=== PATIENT | male | born 1940 | race Caucasian/White ===

== ENCOUNTER 2016-12-13 06:34 | Day surgery (SDC) | payer MEDICARE ==
[2016-12-12 13:44] LABS: BASOPHILS 0.5 % (0-2); EOSINOPHILS 1.7 % (0-7); HEMATOCRIT 43.9 % (42.0-54.0); HEMOGLOBIN 14.9 g/dL (13.5-17.5); IMMATURE GRANULOCYTES 0.3 % (0-5); LYMPHOCYTES 14.8 % (15-50); MCH 31.3 pg (26.0-34.0); MCHC 33.9 g/dL (31.0-37.0); MCV 92.2 fL (80.0-100.0); MEAN PLATELET VOLUME 11.5 fL (7.4-10.4); MONOCYTES 6.7 % (2-11); RBC 4.76 10x6/uL (4.20-6.10); RDW 14.7 % (11.5-14.5); WBC 9.2 10x3/uL (4.8-10.8)
[2016-12-12 13:57] LABS: PLATELET COUNT 198 10x3/uL (130-400)
[2016-12-12 14:14] LABS: APTT 29.1 SECONDS (22.8-39.4); INR 0.94 (0.85-1.17); PROTIME 12.5 SECONDS (11.6-15.0)
[~2016-12-13] VITALS: Ht 175.3 cm; Wt 60.0 kg
[~2016-12-13 06:34] MED LIST: BAYER CHEWABLE81 MG PO; CENTRUM COMPLE1 EACH PO; FISH OIL 1,2001 CAP PO; MAGNESIUM OXID250 MG PO; OMEPRAZOLE20 M1 PO; STRESS 600 WI1 UDTAB PO; ZESTRIL10 MG PO; ZOCOR40 MG PO
[2016-12-13 08:06] VITALS: BP 141/80; BMI 21.0
[2016-12-13] MEDS ORDERED: FUROSEMIDE20 MG PO (11:48)
[2016-12-13] MEDS ORDERED: FLOMAX0.4 MG PO (11:48)
[2016-12-13] MEDS ORDERED: HYDROCODON-ACE1 EAC7 PO (11:48)
--- NOTE | 2016-12-13 11:57 | NUR ---
12 LEAD EKG OBTAINED UPON ARRIVAL TO PACU PER DR CHANG ORDERS. RESULTS TO . ORDERS FOR CARDIOLOGY CONSULT.
--- NOTE | 2016-12-13 12:21 | NUR ---
DR STILL NOTIFIED OF EKG CHANGES AND CARDIOLOGY CONSULT. OK TO TRANSFER PT BACK TO [facility] FOR EVAL.
--- NOTE | 2016-12-13 13:28 | NUR ---
8954 DR. STILL/GRISEDLA'S OFFICE NOTIFED OF CONSULT.
--- NOTE | 2016-12-13 13:31 | NUR ---
3510 EKG FAXED TO [id number]
--- NOTE | 2016-12-13 14:26 | NUR ---
1410 PT. STOOD AT BEDSIDE TO VOID, VOIDED 25CC IN URINAL, PT. FAINTED WITH VOIDING, RETURNED TO BED, QUICKLY AROUSED, VS 78 12 94% BP 109/55 IV PATENT OPENED UP RATE. RATES PAIN 2-3. PT TO REMAIN ON BEDREST HEAD OF BED AT 20 DEGREES.
[2016-12-13 15:54] LABS: INR 1.08 (0.85-1.17); PROTIME 13.9 SECONDS (11.6-15.0)
[2016-12-13 16:09] LABS: CREATINE KINASE 84 UL (21-232)
[2016-12-13 16:10] LABS: TROPONIN-I < 0.017 ng/mL (0.000-0.060)
--- NOTE | 2016-12-13 17:37 | NUR ---
1735 REPORT TO Nickolas GABRIEL. TO 2111 BY YUVAL.
[2016-12-13 18:04] VITALS: BP 106/70; Ht 175.3 cm; Wt 60.0 kg
--- NOTE | 2016-12-13 18:15 | NUR ---
PT TO ROOM FROM OUTPATIENT. PT ALERT AND ORIENTED VS ARE WNL AND CHARTED. PT IV INFUSING TO LEFT UPPER FA NS @100. FAMILY AT BEDSIDE. BA IS ON. TELE PLACED AND PT IS RUNNING SR 90 BPM. WILL CONT TO MONITOR
--- NOTE | 2016-12-13 18:36 | NUR ---
PT SITTING UP IN BED WITH FAMILY AT BEDSIDE DENY NEEDS
[2016-12-13 20:00] VITALS: BP 97/53
--- NOTE | 2016-12-13 20:10 | NUR ---
PT RECEIVED SITTING UP IN BED EATING ICE CHIPS AAOX3 AT THIS TIME WITH FAMILY MEMBER AT BEDSIDE. ASSESSMENT COMPLETED PER FLOW SHEET. PT DENIES NEEDS AT THIS TIME. BED LOW. PHONE AND CALL LIGHT IN REACH. SRX2.
[2016-12-13 21:37] LABS: BASOPHILS 0.2 % (0-2); EOSINOPHILS 0.1 % (0-7); IMMATURE GRANULOCYTES 0.4 % (0-5); LYMPHOCYTES 8.2 % (15-50); MCH 30.6 pg (26.0-34.0); MCHC 32.9 g/dL (31.0-37.0); MCV 93.1 fL (80.0-100.0); MEAN PLATELET VOLUME 11.5 fL (7.4-10.4); MONOCYTES 6.4 % (2-11); NEUTROPHILS 84.7 % (40-80); PLATELET COUNT 173 10x3/uL (130-400); RDW 14.7 % (11.5-14.5)
[2016-12-13 21:52] LABS: HEMOGLOBIN 11.5 g/dL (13.5-17.5); RBC 3.76 10x6/uL (4.20-6.10); WBC 14.6 10x3/uL (4.8-10.8)
--- NOTE | 2016-12-13 22:00 | NUR ---
PM MEDS GIVEN AT THIS TIME. PT DENIES NEEDS. BED LOW. PHONE AND CALL LIGHT IN REACH. SRX2.
[2016-12-13 22:10] LABS: ALKALINE PHOSPHATASE 60 U/L (46-116); ALT (SGPT) 26 U/L (10-68); BILIRUBIN - TOTAL 0.49 mg/dL (0.2-1.3); CALC OSMOLALITY 280 mosm/kg (275-300); CALCIUM 7.9 mg/dL (8.5-10.1); CARBON DIOXIDE 29.8 mmol/L (21.0-32.0); CHLORIDE - SERUM 103 mmol/L (98-107); CKMB 1.1 U/L (0.0-3.6); CREATINE KINASE 120 UL (21-232); CREATININE - SERUM 1.2 mg/dL (0.6-1.3); GLUCOSE 106 mg/dL (74-106); POTASSIUM - SERUM 4.2 mmol/L (3.5-5.1); PROTEIN - SERUM 5.8 g/dL (6.4-8.2); SODIUM 139 mmol/L (136-145); UREA NITROGEN 22 mg/dL (7-18); eGFR NON AFRICAN AMERICAN 63 mL/min (90-120)
[2016-12-13 22:18] LABS: TROPONIN-I < 0.017 ng/mL (0.000-0.060)
[2016-12-14] VITALS: BP 97/67
--- NOTE | 2016-12-14 02:46 | NUR ---
NEW BAG OF NS HUNG AT THIS TIME. PT DENIES NEEDS. BED LOW. PHONE AND CALL LIGHT IN REACH. SRX2.
[2016-12-14 04:00] VITALS: BP 110/62
--- NOTE | 2016-12-14 04:22 | NUR ---
PEPCID IVP ADMINISTERED AT THIS TIME. PT DENIES NEEDS. VOIDED APPROX 250 AT THIS TIME IN URINAL. BED LOW. PHONE AND CALL LIGHT IN REACH. SRX2.
[2016-12-14 05:13] LABS: BASOPHILS 0.3 % (0-2); EOSINOPHILS 0.8 % (0-7); HEMATOCRIT 31.5 % (42.0-54.0); HEMOGLOBIN 10.5 g/dL (13.5-17.5); IMMATURE GRANULOCYTES 0.2 % (0-5); LYMPHOCYTES 18.4 % (15-50); MCH 30.9 pg (26.0-34.0); MCHC 33.3 g/dL (31.0-37.0); MCV 92.6 fL (80.0-100.0); MEAN PLATELET VOLUME 11.8 fL (7.4-10.4); MONOCYTES 9.2 % (2-11); NEUTROPHILS 71.1 % (40-80); PLATELET COUNT 169 10x3/uL (130-400); RDW 14.8 % (11.5-14.5)
[2016-12-14 05:24] LABS: WBC 9.1 10x3/uL (4.8-10.8)
[2016-12-14 05:27] LABS: ALBUMIN 2.8 g/dL (3.4-5.0); ALKALINE PHOSPHATASE 53 U/L (46-116); ALT (SGPT) 24 U/L (10-68); BILIRUBIN - TOTAL 0.59 mg/dL (0.2-1.3); CALC OSMOLALITY 281 mosm/kg (275-300); CALCIUM 7.8 mg/dL (8.5-10.1); CARBON DIOXIDE 29.8 mmol/L (21.0-32.0); CHLORIDE - SERUM 105 mmol/L (98-107); CREATININE - SERUM 1.2 mg/dL (0.6-1.3); GLUCOSE 97 mg/dL (74-106); POTASSIUM - SERUM 4.1 mmol/L (3.5-5.1); PROTEIN - SERUM 5.4 g/dL (6.4-8.2); SODIUM 140 mmol/L (136-145); UREA NITROGEN 20 mg/dL (7-18); eGFR NON AFRICAN AMERICAN 63 mL/min (90-120)
[2016-12-14 05:37] LABS: CREATINE KINASE 121 UL (21-232); MAGNESIUM - SERUM 1.6 mg/dL (1.8-2.4); PHOSPHOROUS 3.3 mg/dL (2.5-4.9)
[2016-12-14 05:38] LABS: TROPONIN-I 0.017 ng/mL (0.000-0.060)
[2016-12-14 08:00] VITALS: BP 120/66
--- NOTE | 2016-12-14 08:13 | NUR ---
AM ROUNDS - PT AWAKE IN BED RECIEVING A BREATHING TREATMENT. BED ALARM ON. AT BEDSIDE. IV IN LUE WITH NS AT 100CC/HR. MONITOR SHOWING SR, HR 78. WILL CONTINUE TO MONITOR
--- NOTE | 2016-12-14 08:20 | OP ---
PATIENT NAME: ALCIDES العراقي MEDICAL RECORD: [id number] :40 LOCATION:D. D.2111 ADMISSION DATE: SURGEON: JOSEFINA CARTER MD DATE OF OPERATION: 12/13/2016 SURGEON: Josefina Carter MD. PREOPERATIVE DIAGNOSIS: Recurrent bilateral inguinal hernia. POSTOPERATIVE DIAGNOSIS: Recurrent bilateral inguinal hernia. PROCEDURE PERFORMED: Laparoscopic recurrent bilateral inguinal hernia repair with mesh. ANESTHESIA: General. COMPLICATIONS: None. SPECIMENS: None. Case was clean. ESTIMATED BLOOD LOSS: 20 cc. OPERATIVE COURSE: After consent was obtained, the patient was taken to the operating room and placed in the supine position on the operating table. Next, general anesthesia was given via endotracheal intubation after a timeout was taken to confirm the correct patient and procedure. The abdomen was prepped and draped in typical sterile fashion. Local anesthetic was injected just to the right of the umbilicus. An incision was made with a 15-blade scalpel. Dissection continued with electrocautery to the level of the external oblique fascia. The external oblique fascia was incised with a 15-blade scalpel. The rectus muscles were gently with a blunt [place] clamp when the posterior fascia was encountered. Retractor was placed. The Spacemaker balloon was inserted into the preperitoneal space and advanced to the pubic tubercle. The balloon was inflated. It was held inflated for approximately 3 minutes. The Spacemaker balloon was removed. The preperitoneal space was inflated with CO2. There was an adequate dissection of the preperitoneal space with the balloon. At this time, 2 additional 5-mm trocars were placed into the preperitoneal space under direct laparoscopic vision after administration of local anesthetic, one in the left lower quadrant and one in the right lower quadrant. The pubic tubercles were dissected down bilaterally. The inferior epigastrics were identified. On the left side, there was a large indirect inguinal component associated with the hernia. The hernia sac was bluntly dissected. The peritoneum was dissected inferiorly until the vas was noted to be running medially, the vessels running laterally, the vessels were clearly dissected and delineated at this time. This was in the right side. There was both the direct and indirect component on the right side. The hernia sac was dissected down the indirect space. The peritoneum was then dissected bluntly inferiorly until the vas was noted to be running medially and the vessels running laterally at this time. A left-sided Bard 3DMax mesh was placed into the preperitoneal space. It was secured to the pubic tubercle medially. It was secured to the rectus muscle anteriorly and superiorly. A second mesh was placed in the preperitoneal space, this was a right-sided mesh. It was again secured to the pubic tubercle medially, the rectus muscle posteriorly, it was tucked in both meshes. The OPERATIVE REPORT [id number] ALCIDES العراقي were tucked laterally into the lateral space. At this time, the meshes were confirmed to be covering both the direct and indirect spaces on both sides. At this time, all instruments were removed. The preperitoneal space was deflated. The trocars were removed. External oblique fascia was closed with an 0 Vicryl suture. The skin was closed with 4-0 Monocryl, Mastisol and Steri-Strips. At the end of the case, all needle and instrument counts were correct. No complications occurred. The patient was extubated and returned to recovery room in stable condition. TRANSINT:[id number] Voice Confirmation ID: [id number] DOCUMENT ID: [id number] JOSEFINA CARTER MD at 0820 CC: [id number] DICTATION DATE: 12/13/16 1145 CONTINUING EDUCATION SPECIALIST: 12/13/162030 [facility] [address] [place] [address]
[2016-12-14 12:00] VITALS: BP 108/70
[2016-12-14 16:00] VITALS: BP 101/52
--- NOTE | 2016-12-15 16:36 | EC ---
PATIENT:ALCIDES العراقي DATE OF SERVICE: 12/13/16 SEX: M MEDICAL RECORD: [id number] DATE OF : 40 LOCATION:D.OPS AGE OF PATIENT: 75 ADMISSION DATE: 12/13/16 REFERRING PHYSICIAN: INTERPRETING PHYSICIAN: JASON STILL MD ECHOCARDIOGRAM REPORT ECHO CHARGES 4 ECHO COMPLETE CLINICAL DIAGNOSIS: SYNCOPE/EKG CHANGES HX TN/HTN ECHOCARDIOGRAPHIC MEASUREMENTS (adult normal given) AC root (d.<3.7cm) 3.3 LV Septum d (<1.2 cm> 1.6 Valve Excursion 1.8 LV Septum (systole) 2.3 Left Atria (s.<4.0cm> 3.7 LVPW d(<1.2cm) 1.4 RV (d.<2.3cm) 3.8 LVPW (sytole) 2.0 LV diastole(<5.6CM) 4.3 MV E-F(>70mm/sec) LV systole 2.3 LVOT Diameter 1.8 MV exc.(>10mm) Est.ejection fraction (50-75%) Pericardial Effusion N DOPPLER: LVIT A 71.0 E 38.0 LA RVSP LVOT 90 AOP1/2T Asc. Ao 136 RVOT RA PA AV Gradient Peak 7.42 AV Mean 4.03 AV Area 1.5 MV Gradient Peak 3.68 MV Mean 1.04 MV Area COMMENTS: Senior Salesforce Developer: Asha PAGE Chainstitch Hemmer:Asha Branch TAPE# PACS DATE OF SERVICE: 12/14/2016 Echocardiogram FINDINGS: 1. Left ventricle chamber size is within normal limits. Left ventricular systolic function is normal. Overall ejection fraction estimated at 55%. 2. Left atrium, right atrium, and right ventricle chamber sizes are within normal limits. 3. Valvular structures have normal structure and motion. ECHOCARDIOGRAM REPORT [id number] ALCIDES العراقي 4. Doppler interrogation only reveals mild mitral regurgitation. No other valvular insufficiency or stenosis. 5. No evidence of pericardial effusion or left ventricular thrombus. TRANSINT:[id number] Voice Confirmation ID: [id number] DOCUMENT ID: [id number] JASON STILL MD at 1638 CC: [id number] DICTATION DATE: 12/14/16 1629 FINANCIAL ANALYST ACCOUNTANT: 12/14/16 2703 [facility] 12/14/16 [facility] [address] [place] [address]
== END 2016-12-14 17:30 | disposition home or self-care (01) ==
LOC: D.M2 06:34 → D.OPS 06:34 → D.PAN 09:40 → D.OPS 11:30 → D.M2 17:57 → D.OPS 12-14 17:30
PROVIDERS: Anesthesiology; Emergency Medicine; Surgery
DX: K40.20 Bilateral inguinal hernia, without obstruction or gangrene, not specified as recurrent (principal); I71.4 Abdominal aortic aneurysm, without rupture; N28.89 Other specified disorders of kidney and ureter; I25.10 Atherosclerotic heart disease of native coronary artery without angina pectoris; E78.5 Hyperlipidemia, unspecified; R94.31 Abnormal electrocardiogram [ECG] [EKG]; R55 Syncope and collapse; K21.9 Gastro-esophageal reflux disease without esophagitis; F17.200 Nicotine dependence, unspecified, uncomplicated; Z01.812 Encounter for preprocedural laboratory examination

== ENCOUNTER → 2017-07-02 08:23 | Outpatient (CLI) | payer MEDICARE ==
[2016-12-13 18:04] VITALS: BMI 19.5
[~2017-07-02 08:23] MED LIST changes: +FLOMAX0.4 MG PO; +FUROSEMIDE20 MG PO; +HYDROCODON-ACE1 EAC7 PO
[2017-07-02 09:21] LABS: CREATININE - SERUM 1.2 mg/dL (0.6-1.3)
== END | disposition home or self-care (01) ==
LOC: D.CT 08:23
PROVIDERS: Internal Medicine Cardiovascular Disease
DX: I71.4 Abdominal aortic aneurysm, without rupture (principal)

== ENCOUNTER → 2018-04-11 08:07 | Outpatient (CLI) | payer MEDICARE ==
[2016-12-13 18:04] VITALS: BMI 19.5
== END | disposition home or self-care (01) ==
LOC: D.CT 08:07
DX: R51 Headache (principal)

== ENCOUNTER → 2018-06-05 15:26 | Outpatient (CLI) | payer MEDICARE ==
[2016-12-13 18:04] VITALS: BMI 19.5
== END | disposition home or self-care (01) ==
LOC: D.MRI 15:26
DX: M54.2 Cervicalgia (principal)

== ENCOUNTER → 2018-08-12 17:13 | Outpatient (CLI) | payer MEDICARE ==
[2016-12-13 18:04] VITALS: BMI 19.5
== END | disposition home or self-care (01) ==
LOC: D.LABREF 17:13
DX: R31.9 Hematuria, unspecified (principal)

== ENCOUNTER → 2018-08-15 15:09 | Outpatient (CLI) | payer MEDICARE ==
[2016-12-13 18:04] VITALS: BMI 19.5
[~2018-08-15 15:09] MED LIST changes: +CELEXA20 MG PO; +PROTONIX40 MG PO; +TOPAMAX50 MG PO
[2018-08-15 16:17] LABS: CREATININE - SERUM 1.2 mg/dL (0.6-1.3)
== END | disposition home or self-care (01) ==
LOC: D.CT 15:09
PROVIDERS: Urology
DX: Z85.528 Personal history of other malignant neoplasm of kidney (principal)

== ENCOUNTER 2018-08-20 05:10 | Day surgery (SDC) | payer MEDICARE ==
[2018-08-19 09:51] LABS: BASOPHILS 0.5 % (0-2); EOSINOPHILS 1.6 % (0-7); HEMATOCRIT 44.2 % (42.0-54.0); HEMOGLOBIN 15.1 g/dL (13.5-17.5); IMMATURE GRANULOCYTES 0.4 % (0-5); LYMPHOCYTES 17.4 % (15-50); MCH 31.5 pg (26.0-34.0); MCHC 34.2 g/dL (31.0-37.0); MCV 92.3 fL (80.0-100.0); MEAN PLATELET VOLUME 11.1 fL (7.4-10.4); MONOCYTES 7.4 % (2-11); NEUTROPHILS 72.7 % (40-80); RBC 4.79 10x6/uL (4.20-6.10); RDW 14.7 % (11.5-14.5)
[2018-08-19 09:53] LABS: PLATELET COUNT 213 10x3/uL (130-400)
[2018-08-19 10:04] LABS: APTT 31.6 SECONDS (22.8-39.4); INR 1.06 (0.85-1.17); PROTIME 13.3 SECONDS (11.6-15.0)
[2018-08-19 10:07] LABS: ANION GAP 12.4 mmol/L (8-16); CALCIUM 9.5 mg/dL (8.5-10.1); CARBON DIOXIDE 27.7 mmol/L (21.0-32.0); CREATININE - SERUM 1.3 mg/dL (0.6-1.3); POTASSIUM - SERUM 4.1 mmol/L (3.5-5.1)
[~2018-08-20] VITALS: Ht 175.3 cm; Wt 62.1 kg
[2018-08-20 06:38] VITALS: BP 110/69; Ht 175.3 cm; Wt 62.1 kg
--- NOTE | 2018-08-20 09:50 | NUR ---
DC INSTRUCTIONS GIVEN TO PT. STATES UNDERSTANDIND. DC'D IV CATH FULLY INTACT. PT VOIDED. PT LEFT UNIT VIA AT 0671
--- NOTE | 2018-08-20 11:58 | OP ---
PATIENT NAME: ALCIDES العراقي MEDICAL RECORD: [id number] :40 LOCATION:D.[facility] ADMISSION DATE: SURGEON: THIAGO MAE MD DATE OF OPERATION: 08/20/2018 SURGEON: Thiago Mae MD ANESTHESIA: TIVA by Fili Zamora CRNA. DIAGNOSES: 1. History of bladder cancer. 2. Obstructive BPH. PROCEDURES: Cystoscopy, UroLift times 5 implants. FINDINGS: Inflamed bladder with single ureteral orifices bilaterally. No bladder tumors. Obstructive bilateral lateral lobes of the prostate. No median lobe visible. Prostate size of 50 grams on digital rectal examination. ESTIMATED BLOOD LOSS: Minimal. CLINICAL HISTORY: This is a 77-year-old male, who has a history of bladder cancer. These were resected by Dr. Del Rio 3 years ago. He had a disagreement with Dr. Del Rio and he does not see Dr. Del Rio anymore. He then developed left renal cell carcinoma, which was treated with laparoscopic left radical nephrectomy by Dr. Layne 1-1/2 years ago. He has ongoing microscopic hematuria. He did have a CT angiogram on 07/02/2017, which showed an endovascular stent for an aneurysm and a prior left nephrectomy, but no tumors in the right kidney. His serum creatinine is 1.2. He is a smoker. He is still smoking. He has significant voiding symptoms including nocturia times 3, daytime frequency every 2 hours, slow urinary flow. His IPSS score is 19 and his quality of life score is 3. On digital rectal examination, his prostate was enlarged and estimated to be about 50 grams in size. He comes today for surveillance cystoscopy. He will also be getting the UroLift procedure to treat his BPH. He is not allergic to any medications. He was given Ancef airconditioning plant operator to the OR. DESCRIPTION OF PROCEDURE: The patient was given IV sedation. He was then placed in the dorsal lithotomy position. Lidocaine jelly was inserted into the urethra. We then used the UroLift scope to perform the cystoscopy. No tumors or strictures were seen in the penile urethra. The prostate shows vascular prostatic mucosa with lateral lobe enlargement. The lateral lobes meet in the midline. There is no median lobe at all. Going into the bladder, the bladder was rather inflamed appearing, but no tumors were seen. We then proceeded with the UroLift procedure. The first 2 implants were placed near the bladder neck. We saw the bladder neck, then moved distally about 1.5-2 cm from the bladder neck. In the anterolateral portion of the lateral lobes, the UroLift device was fired. We then moved forward little bit until the reflection from the suture was visible and then the suture was cut and the clip applied. The prostatic urethra was relatively short, so we had to perform a box type configuration. The second set of implants was placed near the level of the verumontanum. I had to go a little bit lower in order not to overlap with the first implant. As a result, we were more on the beefier portion of the lateral lobe. After applying compression, one of the device was fired, but it did not go all the way through and this device was loss. We repeated it with more compression and this device OPERATIVE REPORT [id number] ALCIDES العراقي did catch. This was done on both of the lateral lobes near the verumontanum. At the end of the procedure, he had a good channel in the prostatic urethra. We drained his bladder through the scope sheath, and then I will see the patient in followup in 2 weeks' time to check on his voiding symptoms. TRANSINT:[id number] Voice Confirmation ID: [id number] DOCUMENT ID: [id number] THIAGO MAE MD at 1158 CC: [id number] DICTATION DATE: 08/20/18827 VENETIAN BLIND WASHER: 08/20/18 0945 [facility] 08/20/[address] [address]
== END 2018-08-20 09:50 | disposition home or self-care (01) ==
LOC: D.OPS 05:10 → D.PAN 07:30 → D.OPS 08:00 → D.PAN 08:00 → D.OPS 09:50
PROVIDERS: Anesthesiology
DX: Z85.51 Personal history of malignant neoplasm of bladder (principal); N40.1 Benign prostatic hyperplasia with lower urinary tract symptoms; N13.8 Other obstructive and reflux uropathy; Z01.812 Encounter for preprocedural laboratory examination

== ENCOUNTER → 2018-08-22 17:39 | Outpatient (CLI) | payer MEDICARE ==
[2018-08-20 06:38] VITALS: BMI 20.2
[~2018-08-22 17:39] MED LIST changes: +CIPRO250 MG PO; +FISH OIL 1,0001 CA1 PO; +NORCO 7.5/325 T1 TA1 PO
== END | disposition home or self-care (01) ==
LOC: D.LABREF 17:39
DX: R31.9 Hematuria, unspecified (principal)

== ENCOUNTER 2018-08-26 04:22 | Emergency (ER) | payer MEDICARE ==
[~2018-08-26] VITALS: Ht 175.3 cm; Wt 62.7 kg
[~2018-08-26 04:22] MED LIST changes: -CIPRO250 MG PO; -FISH OIL 1,0001 CA1 PO; -NORCO 7.5/325 T1 TA1 PO
[2018-08-26 04:26] VITALS: Ht 175.3 cm; Wt 62.7 kg
[2018-08-26] MEDS ORDERED: FISH OIL 1,0001 CA1 PO (04:29)
[2018-08-26 05:33] LABS: APPEARANCE TURBID (CLEAR); BACTERIA NONE SEEN /hpf (NONE SEEN); BILIRUBIN NEGATIVE (NEGATIVE); COLOR RED (YELLOW); EPITHELIAL CELLS NSEEN /hpf (0-5); GLUCOSE NEGATIVE (NEGATIVE); KETONE NEGATIVE (NEGATIVE); NITRITE NEGATIVE (NEGATIVE); PROTEIN NEGATIVE (NEGATIVE); RED CELLS - URINE >50 /hpf (0-5); SPECIFIC GRAVITY 1.015 (1.005-1.020); UROBILINOGEN NORMAL (NORMAL); WHITE CELLS - URINE NSEEN /hpf (0-5)
[2018-08-26 06:11] LABS: BASOPHILS 0.9 % (0-2); EOSINOPHILS 2.9 % (0-7); HEMATOCRIT 37.7 % (42.0-54.0); HEMOGLOBIN 12.7 g/dL (13.5-17.5); IMMATURE GRANULOCYTES 0.5 % (0-5); MCHC 33.7 g/dL (31.0-37.0); MEAN PLATELET VOLUME 11.1 fL (7.4-10.4); MONOCYTES 11.1 % (2-11); NEUTROPHILS 69.6 % (40-80); PLATELET COUNT 192 10x3/uL (130-400); RDW 14.9 % (11.5-14.5); WBC 8.2 10x3/uL (4.8-10.8)
[2018-08-26 06:16] LABS: ANION GAP 12.1 mmol/L (8-16); CALCIUM 8.8 mg/dL (8.5-10.1); CARBON DIOXIDE 26.8 mmol/L (21.0-32.0); CREATININE - SERUM 1.2 mg/dL (0.6-1.3); POTASSIUM - SERUM 4.9 mmol/L (3.5-5.1)
[2018-08-26] MEDS ORDERED: CIPRO250 MG PO (06:22)
[2018-08-26] MEDS ORDERED: NORCO 7.5/325 T1 TA1 PO (06:22)
[2018-08-26 07:00] VITALS: BP 136/87
== END 2018-08-26 07:01 | disposition home or self-care (01) ==
LOC: D.ER 04:22
PROVIDERS: Emergency Medicine
DX: R30.0 Dysuria (principal); R31.9 Hematuria, unspecified; Z98.890 Other specified postprocedural states; I10 Essential (primary) hypertension; I25.10 Atherosclerotic heart disease of native coronary artery without angina pectoris; F17.200 Nicotine dependence, unspecified, uncomplicated

== ENCOUNTER → 2018-09-30 08:19 | Outpatient (CLI) | payer MEDICARE ==
[2018-08-26 04:26] VITALS: BMI 20.4
[~2018-09-30 08:19] MED LIST changes: +CIPRO250 MG PO; +FISH OIL 1,0001 CA1 PO; +NORCO 7.5/325 T1 TA1 PO
[2018-09-30 10:01] LABS: CREATININE - SERUM 1.2 mg/dL (0.6-1.3)
== END | disposition home or self-care (01) ==
LOC: D.CT 08:19
PROVIDERS: Internal Medicine Cardiovascular Disease
DX: I71.4 Abdominal aortic aneurysm, without rupture (principal)

== ENCOUNTER → 2019-01-15 09:54 | Outpatient (CLI) | payer MEDICARE ==
[2018-08-26 04:26] VITALS: BMI 20.4
== END | disposition home or self-care (01) ==
LOC: D.US 09:54
PROVIDERS: ATTEND Internal Medicine Cardiovascular Disease
DX: I71.4 Abdominal aortic aneurysm, without rupture (principal)

== ENCOUNTER → 2019-01-28 09:46 | Outpatient (CLI) | payer MEDICARE ==
[2018-08-26 04:26] VITALS: BMI 20.4
--- NOTE | 2019-02-03 14:16 | EC ---
PATIENT:ALCIDES العراقي DATE OF SERVICE: 01/28/19 SEX: M MEDICAL RECORD: [id number] DATE OF : 40 LOCATION:D.[facility] AGE OF PATIENT: 78 ADMISSION DATE: 01/28/19 REFERRING PHYSICIAN: INTERPRETING PHYSICIAN: GEETA OCONNELL MD ECHOCARDIOGRAM REPORT ECHO CHARGES 4 ECHO COMPLETE Date: 01/28/19 CLINICAL DIAGNOSIS: PVC'S/DYSPNEA H/O HTN/PVD/AAA REPAIR ECHOCARDIOGRAPHIC MEASUREMENTS (adult normal given) AC root (d.<3.7cm) 2.9 cm LV Septum d (<1.2 cm> 0.9 cm Valve Excursion 1.5 cm LV Septum (systole) 1.7 cm Left Atria (s.<4.0cm> 3.3 cm LVPW d(<1.2cm) 0.9 cm RV (d.<2.3cm) 2.2 cm LVPW (sytole) 1.2 cm LV diastole(<5.6CM) 6.2 cm MV E-F(>70mm/sec) cm LV systole 4.3 cm LVOT Diameter 1.7 cm MV exc.(>10mm) cm Est.ejection fraction (50-75%) % DOPPLER: LVIT cm/sec A 57.0 cm/sec E 33.0 cm/sec LA cm/sec RVSP 27.0 mmHg LVOT 115 cm/sec AOP1/2T m/s Asc. Ao 134 cm/sec RVOT 50.0 cm/sec RA cm/sec PA 54.0 cm/sec AV Gradient Peak 7.2 mmHg AV Mean 2.7 mmHg AV Area 1.7 cm MV Gradient Peak 2.6 mmHg MV Mean 0.78 mmHg MV Area cm COMMENTS: OP - HC Rotary Envelope Machine Operator: 1 LACI MICHELEOE Front Office Developer: 3 Dr. Avitia TAPE# PACS Pericardial Effusion N DATE OF SERVICE: 01/28/2019 Adequate 2-D echo, color-flow and spectral Doppler, and M-mode. No LVH. LV internal dimensions are normal. Difficult to assess focal wall motion from views present however and variable RR interval with PVCs. Overall estimated EF is mildly reduced at 40% to 45%. Aortic valve sclerosis without stenosis by Doppler interrogation. Left atrium is normal. Mitral valve shows no prolapse. Trace MR. Right-sided chambers are grossly normal. Trace TR. ECHOCARDIOGRAM REPORT [id number] ALCIDES العراقي TRANSINT:[id number] Voice Confirmation ID: [id number] DOCUMENT ID: [id number] GEETA OCONNELL MD at 1416 CC: [id number] DICTATION DATE: 01/30/19 1331 SCULPTURE INSTRUCTOR: 01/30/19 1515 DEP CLI 01/28/19 [place] [id number] [place] [id number]
== END | disposition home or self-care (01) ==
LOC: D.HCCARDIO 09:46
PROVIDERS: ATTEND Internal Medicine Interventional Cardiology
DX: I10 Essential (primary) hypertension (principal)

== ENCOUNTER 2019-02-05 08:05 | Outpatient (CLI) | payer MEDICARE ==
[~2019-02-05] VITALS: Ht 175.3 cm; Wt 62.7 kg
--- NOTE | ~2019-02-05 | HEMODYNAMI ---
PATIENT:ALCIDES العراقي MEDICAL RECORD: [id number] : 40 [id number] ADMISSION DATE: 02/05/19 Generatedon:02/05/201914:08 Patient name: ALCIDES العراقي Patient #: [id number] SSN: : 1940 Date of study: 02/05/2019 Page: Of Hemodynamic Procedure Report Patient Data Patient Demographics Procedure consent was obtained First Name: ALCIDES Gender: Male Last Name: DULCE MARIA : 1940 Middle Initial: M Age: 78 year(s) Patient #: [id number] Race: Unknown Additional ID: [id number] Contact details Address: [place] [address] State: [place] City: [place] Zip code: [address] Past Medical History Allergies Allergen Reaction Date Comments Reported Other allergy 02/05/2019 Admission Admission Data Admission Date: 02/05/2019 Admission Time: 8:05 Procedure Procedure Types Cath Procedure Peripheral Cath Diagnostic Procedure Abd/Extremity Aortagram Procedure Description Procedure Date Procedure Date: 02/05/2019 Procedure Start Time: 10:55 Procedure Staff Name Function Aditya Iqbal MD Performing Physician Amos Benavidez RT Monitor KAMILA MARCUS RT Scrub Eloisa Garcia RN Nurse Procedure Data Cath Procedure Fluoroscopy Diagnostic fluoroscopy Total fluoroscopy Time: time: 58.1 min 58.1 min Diagnostic fluoroscopy Total fluoroscopy dose: dose: 2243 mGy 2243 mGy Contrast Material Contrast Material Type Amount (ml) Isovue 300 120 Entry Location Entry Primary Successful Side Size Upsize Upsize Entry Closure Succes sful Closure Location (Fr) 1 (Fr) 2 (Fr) Remarks Device Remarks Femoral Right 5 Fr Exoseal artery Diagnostic catheters Device Type Used For End Catheter Placement Merit ULTRA BOLUS FLUSH 5Fr 65CM catheter ([id number]) Cook Cobra 2 5F catheter Aortic Root (J32210) Angiography Merit Impress 5Fr SIM 1 Catheter ([id number]) Angiodynamics SOS OMNI 2 NON B 5FR 65CM catheter ([id number]) Merit Impress KA2 5Fr 65CM catheter ([id number]) Procedure Medications Medication Administration Route Dosage Heparin Flush Bag added to field 3 bags (1000units/500ml NS) Lidocaine 1% added to field 20 Versed I.V. 1 mg Fentanyl I.V. 50 mcg Heparin Bolus I.V. 3000 units Versed I.V. 1 mg Fentanyl I.V. 50 mcg Heparin Bolus I.V. 3000 units Nitroglycerin IC/IA I.A. 300 mcg Fentanyl I.V. 25 mcg Fentanyl I.V. 25 mcg Heparin Bolus I.V. 3000 units Nitroglycerin IC/IA I.A. 300 mcg Fentanyl I.V. 25 mcg Hemodynamics Rest Heart Rate: 49 (bpm) Snapshots Pre Cath Intra NCS Post Cath Vital Signs Time Heart Resp SPO2 etCO2 NIBP (mmHg) Rhythm Pain Sedation Rate (ipm) (%) (mmHg) Status Level (bpm) 10:22:00 59 2 94 0 135/74(112) NSR 0 (11) 10(A) , No pain 10:26:12 63 26 95 23.2 135/81(106) NSR 0 (11) 8(A) , No pain 10:30:24 61 9 98 24.7 142/76(118) NSR 0 (11) 8(A) , No pain 10:34:38 62 24 99 24.7 147/81(122) NSR 0 (11) 8(A) , No pain 10:38:52 61 25 98 145/79(99) NSR 0 (11) 8(A) , No pain 10:43:06 61 25 99 24.7 153/82(100) NSR 0 (11) 8(A) , No pain 10:47:22 64 23 98 25.5 146/82(114) NSR 0 (11) 8(A) , No pain 10:51:40 64 24 96 24.7 148/82(117) NSR 0 (11) 8(A) , No pain 10:55:54 67 23 98 21 153/86(125) NSR 0 (11) 8(A) , No pain 11:00:14 64 21 98 19.5 142/71(100) NSR 0 (11) 8(A) , No pain 11:04:28 66 18 97 30 133/74(111) NSR 0 (11) 8(A) , No pain 11:08:44 61 18 97 29.2 136/62(87) NSR 0 (11) 8(A) , No pain 11:12:54 65 16 97 30.8 131/75(115) NSR 0 (11) 8(A) , No pain 11:17:04 66 20 97 24.7 126/74(102) NSR 0 (11) 8(A) , No pain 11:21:12 63 17 97 30 143/75(112) NSR 0 (11) 8(A) , No pain 11:25:26 65 19 98 26.2 141/70(117) NSR 0 (11) 8(A) , No pain 11:29:40 69 14 97 0 136/74(113) NSR 0 (11) 8(A) , No pain 11:33:54 67 14 96 38.3 129/66(104) NSR 0 (11) 8(A) , No pain 11:38:05 66 13 96 25.5 124/67(109) NSR 0 (11) 8(A) , No pain 11:42:13 69 15 96 32.3 127/73(102) NSR 0 (11) 8(A) , No pain 11:46:23 65 14 97 20.2 128/68(106) NSR 0 (11) 8(A) , No pain 11:50:33 74 15 95 33.8 119/70(94) NSR 0 (11) 8(A) , No pain 11:54:41 72 15 96 35.3 125/69(103) NSR 0 (11) 8(A) , No pain 11:58:53 75 15 95 30.8 124/65(101) NSR 0 (11) 8(A) , No pain 12:03:05 75 15 95 23.2 117/64(98) NSR 0 (11) 8(A) , No pain 12:07:13 76 15 95 33.8 118/68(102) NSR 0 (11) 8(A) , No pain 12:11:23 77 16 95 29.2 125/59(93) NSR 0 (11) 8(A) , No pain 12:15:35 75 15 96 30.8 126/64(99) NSR 0 (11) 8(A) , No pain 12:19:45 67 17 96 30 123/71(106) NSR 0 (11) 8(A) , No pain 12:23:52 64 18 94 12.7 122/72(99) NSR 0 (11) 8(A) , No pain 12:28:00 62 18 94 24 119/67(94) NSR 0 (11) 8(A) , No pain 12:32:12 61 19 94 24.7 109/66(85) NSR 0 (11) 8(A) , No pain 12:36:16 63 15 94 30 114/67(89) NSR 0 (11) 8(A) , No pain 12:40:22 61 16 95 29.2 120/68(93) NSR 0 (11) 8(A) , No pain 12:44:29 60 16 95 29.2 121/65(100) NSR 0 (11) 8(A) , No pain 12:48:37 52 18 95 24.7 115/69(88) NSR 0 (11) 8(A) , No pain 12:52:43 61 22 96 27.7 114/67(96) NSR 0 (11) 8(A) , No pain 12:56:51 60 17 96 27 120/62(101) NSR 0 (11) 8(A) , No pain 13:00:57 60 13 96 28.5 113/67(98) NSR 0 (11) 8(A) , No pain 13:05:05 58 16 96 25.5 123/61(108) NSR 0 (11) 8(A) , No pain 13:09:16 49 23 97 20.2 120/65(95) NSR 0 (11) 8(A) , No pain 13:13:26 56 15 95 26.2 122/61(102) NSR 0 (11) 8(A) , No pain 13:17:36 59 14 96 32.2 116/65(94) NSR 0 (11) 8(A) , No pain 13:21:42 64 14 95 27 103/63(88) NSR 0 (11) 8(A) , No pain 13:26:41 62 14 94 29.2 Measuring NSR 0 (11) 8(A) , No pain 13:26:49 52 14 94 31.5 113/65(85) NSR 0 (11) 8(A) , No pain 13:30:57 58 15 95 31.5 115/62(86) NSR 0 (11) 8(A) , No pain 13:35:05 62 15 94 24.7 114/57(96) NSR 0 (11) 8(A) , No pain 13:39:13 56 18 94 25.5 110/57(79) NSR 0 (11) 8(A) , No pain 13:43:18 57 14 93 21 114/62(86) NSR 0 (11) 8(A) , No pain 13:47:22 63 18 95 26.2 113/64(89) NSR 0 (11) 8(A) , No pain 13:51:28 57 17 96 30 120/67(80) NSR 0 (11) 8(A) , No pain 13:56:27 57 15 95 30 Measuring NSR 0 (11) 8(A) , No pain 13:56:33 59 15 94 30 119/62(89) NSR 0 (11) 8(A) , No pain 14:00:43 58 19 91 34.5 121/62(98) NSR 0 (11) 8(A) , No pain 14:04:51 51 10 91 32.2 111/63(100) NSR 0 (11) 8(A) , No pain Medications Time Medication Route Dose Verified Delivered Reason Notes Effe ctiveness by by 10:23:21 Heparin Flush added 3 Aditya Burgess used for Bag to bags Farida Iqbal procedure (1000units/500ml field MD MILLER NS) 10:23:32 Lidocaine 1% added 20ml Aditya Burgess for local to vial Farida Iqbal anesthetic field MD MILLER 10:56:51 Versed I.V. 1 mg Aditya Amin for Farida Garcia RN sedation 10:57:03 Fentanyl I.V. 50 Aditya Elizondoody for mcg Farida Garcia RN sedation 11:08:56 Heparin Bolus I.V. 3000 Aditya Amin Per units Farida Garcia RN physician 11:24:47 Versed I.V. 1 mg Aditya Amin for Farida Garcia RN sedation 11:24:55 Fentanyl I.V. 50 Aditya Eloisa for mcg Farida Garcia RN sedation 12:01:47 Heparin Bolus I.V. 3000 Aditya Eloisa Per units Farida Garcia RN physician 12:21:17 Nitroglycerin I.A. 300 Aditya Eloisa used for IC/IA mcg Farida Garcia careers adviser 12:25:51 Fentanyl I.V. 25 Aditya Eloisa for mcg Farida Oneilr RN sedation 13:08:20 Fentanyl I.V. 25 Aditya Eloisa for mcg Farida Oneilr RN sedation 13:09:32 Heparin Bolus I.V. 3000 Aditya Eloisa Per units Farida Garcia RN physician 13:21:00 Nitroglycerin I.A. 300 Aditya Eloisa used for IC/IA mcg Farida Oneilr careers adviser 13:39:42 Fentanyl I.V. 25 Aditya Eloisa for mcg Farida Oneilr RN sedation Procedure Log Time Note 10:12:51 Amos Benavidez RT (R) (CV) sent for patient. Start room use. 10:12:59 Time tracking: Regular hours (M-F 7:00 - 5:00) 10:13:03 Plan of Care:Hemodynamics will remain stable., Cardiac rhythm will remain stable., Comfort level will be maintained., Respiratory function will remain adequate., Patient/ family verbilizes understanding of procedure., Procedure tolerated without complication., Recovers from procedure without complications.. 10:13:08 Patient received from Outpatients to IR Alert and oriented. Tansferred to table in Supine position. 10:13:09 Correct patient and procedure confirmed by team. 10:13:12 Signed procedure consent form obtained from patient. 10:13:13 ECG and BP/O2 sat monitors applied to patient. 10:13:15 Full Disclosure recording started 10:13:15 - 10:13:19 H&P Date Dictated: 02/05/2019 H&P Addendum completed by physician on day of procedure. (MUST COMPLETE FOR ALL OUTPATIENTS). 10:13:20 Pre-procedure instructions explained to patient. 10:13:21 Pre-op teaching completed and patient verbalized understanding. 10:13:25 Family in waiting room. 10:13:28 Patient NPO since Midnight. 10:13:42 Patient allergic to Other allergy 10:13:49 Use device set IR Diagnostic 10:13:50 ACIST Syringe (48430) opened to sterile field. 10:13:51 ACIST Hand Control (17273) opened to sterile field. 10:13:51 ACIST Manifold (73032) opened to sterile field. 10:13:52 Bag Decanter (2002S) opened to sterile field. 10:13:52 Sterile Angiographic Pack opened to sterile field. 10:13:52 Tegaderm 4 x 4 (1626W) opened to sterile field. 10:14:00 Is the patient allergic to Iodine/contrast media? No. 10:14:01 Is patient on blood thinner?Yes 10:14:04 ACC The patient was administered the following blood thiners within the last 24 hours: ACCAspirin 10:14:09 Patient diabetic? No. 10:14:15 - 10:14:16 ----Pre-sedation anethsthesia assessment.---- 10:14:19 Previous problem with sedation/anesthesia? No ? 10:14:22 Snore? Yes 10:14:24 Sleep apnea? No 10:14:25 Deviated septum? No 10:14:26 Opens mouth fully? Yes 10:14:27 Sticks out tongue? Yes 10:14:32 Airway obstruction? Yes copd 10:14:38 Dentures? Yes partial in 10:20:39 Pre procedure: right dorsailis pedis pulse 1+ Palpable, but thready & weak; easily obliterated 10:20:43 Pre procedure: right posterior tibial pulse Doppler 10:20:48 Patient pain scale 0/10 no pain. 10:20:50 Sharps counted by scrub and verified by R.N. 10:20:50 Alarms reviewed by R. N. 10:20:55 Right groin area was prepped with chlora-prep and draped in sterile fashion 10:20:58 Vital chart was started 10:20:59 Baseline sample Acquired. 10:21:11 IV patent on arrival in right hand with 0.45%NaCl at KVO. 10:23:21 Heparin Flush Bag (1000units/500ml NS) 3 bags added to field was administered by Aditya Iqbal MD; used for procedure; 10::32 Lidocaine 1% 20ml vial added to field was administered by Aditya mejia MD; for local anesthetic; 10:: Physician arrived 10:: --------ALL STOP TIME OUT------ 10::53 Final Timeout: patient, procedure, and site verified with staff and physician. All members of the team are in agreement. 10:: Right groin site verified by team. 10:53:00 Fire Safety Assessment: A--An alcohol-based skin anteseptic being used preoperatively., C--Open oxygen or nitrous oxide is being used. 10:53:07 Sedation plan: IV Moderate Sedation Medication:Versed, Fentanyl 10:55:01 Procedure started. 10:55:05 Local anesthetic to right femoral artery with Lidocaine 1% by Aditya Iqbal MD.INITIAL ACCESS ONLY 10:55:45 BENTSON 145cm wire (S29519) opened to sterile field. 10:55:45 TUBING Contrast Injection High Pressure (BMD815Z) opened to sterile field. 10:55:46 SHEATH 5FR [place] (KZB546) opened to sterile field. 10:55:46 Micropuncture VSI 4FR kit opened to sterile field. 10:55:49 A [employer] ULTRA BOLUS FLUSH 5Fr 65CM catheter ([id number]) was advanced over the wire and used for . 10:56:51 Versed 1 mg I.V. was administered by Eloisa Garcia RN; for sedation; 10:57:03 Fentanyl 50 mcg I.V. was administered by Eloisa Garcia RN; for sedation ; 11:01:05 Access obtained with 4Fr micropunture. 11:01:15 A 5 Fr sheath was inserted into the Right Femoral artery 11:08:56 Heparin Bolus 3000 units I.V. was administered by Eloisa Garcia RN; Per physician; 11:18:27 A [employer] Cobra 2 5F catheter (C79854) was advanced over the wire and used for Aortic Root Angiography. 11:18:28 GLIDE WIRE ANGLE 180cm (QV2893) opened to sterile field. 11:18:37 TORQUE DEVICE PLASTIC .038 ( TD01) opened to sterile field. 11:23:52 A [employer] Impress 5Fr SIM 1 Catheter ([id number]) was advanced over the wire and used for . 11:24:47 Versed 1 mg I.V. was administered by Eloisa Garcia RN; for sedation; 11:24:55 Fentanyl 50 mcg I.V. was administered by Eloisa Garcia RN; for sedation ; 11:30:49 A [facility] SOS OMNI 2 NON B 5FR 65CM catheter ([id number]) was advanced over the wire and used for . 11:37:55 COPILOT Valve Control (6591055) opened to sterile field. 11:56:21 TRANSEND STEERABLE wire ([id number]) opened to sterile field. 11:59:40 Procedure type changed to Cath procedure, Peripheral Cath Diagnostic Procedure, Abd/Extremity, Aortagram 12:01:47 Heparin Bolus 3000 units I.V. was administered by Eloisa Garcia RN; Per physician; 12:04:29 3 x 6 interlock coil used lot#[id number] 12:17:13 GLIDE WIRE GT DOUBLE ANGLE .018 (RG*HA2770HY) opened to sterile field. 12:17:13 GLIDE WIRE GT ANGLED 45 DEGREE .018 (RG*[id number]) opened to sterile field. 12:21:17 Nitroglycerin IC/IA 300 mcg I.A. was administered by Eloisa Garcia RN; used for procedure; 12:25:21 COIL Interlock 5 x 15 ([id number]) opened to sterile field. 12:25:51 Fentanyl 25 mcg I.V. was administered by Eloisa Garcia RN; for sedation ; 12:32:15 4 x 8 interlock lot#[id number] 12:34:32 3 x 6 interlock lot#[id number] 12:56:42 COIL HILAL 2.0-2 (J28152) opened to sterile field. 13:05:45 CHOICE PT Extra Support J 300cm guide wire (4864008B0) opened to steril e field. 13:08:20 Fentanyl 25 mcg I.V. was administered by Eloisa Garcia RN; for sedation ; 13:08:41 A [employer] KA2 5Fr 65CM catheter (54573ZG4) was advanced over the wire and used for . 13:09:32 Heparin Bolus 3000 units I.V. was administered by Eloisa Garcia RN; Per physician; 13:21:00 Nitroglycerin IC/IA 300 mcg I.A. was administered by Eloisa Garcia RN; used for procedure; 13:23:28 RENEGADE STAIGHT 150CM microcatheter ([id number]) opened to sterile field. 13:33:46 COIL Tornado 7MM (P40908) opened to sterile field. 13:37:58 COIL Micronester 6MM (T88119) opened to sterile field. 13:39:42 Fentanyl 25 mcg I.V. was administered by Eloisa Garcia RN; for sedation ; 13:42:08 COIL Micronester 6MM (U43349) opened to sterile field. 13:42:09 COIL Micronester 6MM (L07035) opened to sterile field. 13:49:48 6 x 20 interlock lot#[id number] 13:50:01 EXOSEAL 5Fr (EX500) opened to sterile field. 13:50:12 Sheath removed intact; hemostasis achieved with Exoseal to the Right Femoral artery. 13:50:15 Procedure ended.(Physican Out) 13:51:04 Fluoroscopy time 58.10 minutes. 13:51:09 Fluoroscopy dose: 2243 mGy 13:51:09 Flurop Dose total: 2243 13:52:00 Contrast amount:Isovue 300 120ml. 13:52:05 Sharps counted by scrub and verified by R.N. 13:52:07 Insertion/operative site no bleeding no hematoma. 13:52:09 Post-op/insertion site Right Femoral artery dressed using a 4 x 4 and Tegaderm. 13:52:13 Post right femoral artery:stable 13:52:19 Post procedure instruction explained to patient.Patient verbalizes understanding. 13:52:20 Procedure and supply charges have been captured, reviewed, submitted an d are correct. 14:07:45 Report given to Outpatients. 14:07:49 Patient transfered to Outpatients with Bed. 14:08:17 Vital chart was stopped Device Usage Item Name Manufacture Quantity Catalog Number Hospital Part Current M inimal Lot# / Charge Number Stock Stock Serial# Code ACIST Syringe Acist Medical 1 20760 104195 856151 450113 2 0 (11780) Systems Inc ACIST Hand Acist Medical 1 40351 802374 860696 361656 5 Control Systems Inc (45606) ACIST Manifold [employer] 1 32316 089865 344183 457114 5 (31671) Systems Inc Bag Decanter Microtek 1 2001S 487020 77227 790522 5 (2001S) Medical Inc. Sterile Cardinal 1 [id number] 595295 430995 5 Angiographic Health Pack Tegaderm 4 x 4 3M 1 1626W 212072 393531 211781 5 (1626W) BENTSON 145cm Cook Medical 1 E07192 764713 166811 5 wire (C51252) TUBING [facility] Medical 1 TUT704R 233902 748890 683819 5 [id number] Contrast Injection High Pressure (MZX140W) SHEATH 5FR Terumo 1 ZDP533 737989 801183 307841 5 [place] (ZDC844) Micropuncture VSI VASCULAR 1 7266V 934335 754083 5 VSI 4FR kit SOLUTIONS [facility] ULTRA [facility] 1 [id number] 811952 930205 5 BOLUS FLUSH 5Fr 65CM catheter ([id number]) Cook Cobra 2 [employer] Medical 1 J57434 574540 115815 5 5F catheter (T30557) GLIDE WIRE Terumo 1 FG8378 150029 056996 033445 5 ANGLE 180cm (TL8372) TORQUE DEVICE Baldwin 1 TD01 674181 878843 435926 5 PLASTIC .038 ( Scientific TD01) Merit Impress [facility] Medical 1 69480AXM9 907363 522491 555440 5 5Fr SIM 1 Catheter (23988IBL9) Angiodynamics Angiodynamics 1 92946588 815314 63602 372153 5 SOS OMNI 2 NON B 5FR 65CM catheter (52445578) COPILOT Valve [place] 1 9962781 956823 176347 848316 5 Control Vascular (3987963) TRANSEND Baldwin 1 [id number] 480978 040530 5 03533175 STEERABLE wire Scientific ([id number]) GLIDE WIRE GT Terumo 1 RG*FZ3082AP 830465 073705 5 DOUBLE ANGLE .018 (RG*CL5107SW) GLIDE WIRE GT Terumo 1 RG*IG3346HS 077125 013707 5 ANGLED 45 DEGREE .018 (RG*WE8419NQ) COIL Interlock Baldwin 1 [id number] 202767 132748 872301 5 [id number] 5 x 15 Scientific ([id number]) COIL HILAL [employer] [facility] 1 I56114 898569 563729 5 9418737 2.0-2 (J73408) CHOICE PT Baldwin 1 [id number] 403018 608653 474611 5 [id number] Extra Support Scientific J 300cm guide wire (7268367H5) Merit Impress [facility] 1 00362MT4 979839 261459 5 KA2 5Fr 65CM catheter (29855LJ4) RENEGADE Baldwin 1 [id number] 576531 964964 5 [id number] STAIGHT 150CM Scientific microcatheter ([id number]) COIL Tornado [facility] 1 D61513 226475 488096 5 6604874 7MM (H44960) COIL [facility] 3 U31554 629968 775085 5 0518229 Micronester 2756046 6MM (K56536) 0862499 EXOSEAL 5Fr Cardinal 1 EX500 913967 775984 566815 1 0 [id number] (EX500) Health Signature Audit [place] Stage Time Signature Unsigned Intra-Procedure 02/05/2019 Amos 2:08:12 PM [place] RT (R) (CV) Signatures Monitor : Amos Signature : Deepthiield RT Date : Time : [facility] [address] [place] [address]
[2019-02-05 08:30] LABS: ANION GAP 13.6 mmol/L (8-16); CARBON DIOXIDE 27.7 mmol/L (21.0-32.0); CREATININE - SERUM 1.3 mg/dL (0.6-1.3); POTASSIUM - SERUM 4.3 mmol/L (3.5-5.1)
[2019-02-05 08:40] LABS: BASOPHILS 0.5 % (0-2); EOSINOPHILS 2.2 % (0-7); HEMATOCRIT 40.4 % (42.0-54.0); IMMATURE GRANULOCYTES 0.3 % (0-5); LYMPHOCYTES 12.2 % (15-50); MCH 31.3 pg (26.0-34.0); MCHC 34.7 g/dL (31.0-37.0); MCV 90.4 fL (80.0-100.0); MEAN PLATELET VOLUME 10.5 fL (7.4-10.4); MONOCYTES 7.4 % (2-11); NEUTROPHILS 77.4 % (40-80); PLATELET COUNT 177 10x3/uL (130-400); RBC 4.47 10x6/uL (4.20-6.10); RDW 15.2 % (11.5-14.5); WBC 9.6 10x3/uL (4.8-10.8)
[2019-02-05 08:43] VITALS: BP 125/67; Ht 175.3 cm; Wt 62.7 kg
[2019-02-05 08:45] LABS: APTT 29.5 SECONDS (22.8-39.4); INR 1.04 (0.85-1.17); PROTIME 13.1 SECONDS (11.6-15.0)
--- NOTE | 2019-02-05 14:10 | NUR ---
REC'D FROM [employer] ACCOMPANIED BY . DRESSING CDI TO RIGHT GROIN. ICE WATER BROUGHT TO PT. REGULAR FINGER FOOD TRAY ORDERED FOR PATIENT. SEE POST PROCEDURE VITAL SIGN SHEET FOR FREQUENT FOR VITALS.
--- NOTE | 2019-02-05 14:25 | NUR ---
DRESSING CDI TO RIGHT GROIN. PULSES PALPABLE. FAMILY AT BEDSIDE.
--- NOTE | 2019-02-05 14:40 | NUR ---
ICE PACK APPLIED TO RIGHT GROIN. FAMILY AT BEDSIDE. DRESSING CDI.
--- NOTE | 2019-02-05 15:11 | NUR ---
1511 LAB HERE FOR DRAW.
== END 2019-02-05 18:30 | disposition home or self-care (01) ==
LOC: D.RAD 08:05 → D.SP 08:05 → D.RAD 10:30 → D.SP 18:30
PROVIDERS: ATTEND Radiology Diagnostic Radiology
DX: T82.330A Leakage of aortic (bifurcation) graft (replacement), initial encounter (principal); Y83.8 Other surgical procedures as the cause of abnormal reaction of the patient, or of later complication, without mention of misadventure at the time of the procedure

== ENCOUNTER → 2019-02-12 08:31 | Outpatient (CLI) | payer MEDICARE ==
[2019-02-05 08:43] VITALS: BMI 20.4
== END | disposition home or self-care (01) ==
LOC: D.CT 08:30
PROVIDERS: ATTEND Family Medicine
DX: R10.9 Unspecified abdominal pain (principal)

== ENCOUNTER → 2020-03-16 11:06 | Outpatient (CLI) | payer MEDICARE ==
[2019-02-05 08:43] VITALS: BMI 20.4
== END | disposition home or self-care (01) ==
LOC: D.CT 11:00
PROVIDERS: ATTEND Internal Medicine Cardiovascular Disease
DX: I71.4 Abdominal aortic aneurysm, without rupture (principal)

== ENCOUNTER → 2020-12-16 08:35 | Outpatient (CLI) | payer MEDICARE ==
[2020-07-06 08:53] VITALS: BMI 19.9
--- NOTE | ~2020-12-16 | ST ---
PATIENT:ALCIDES العراقي MEDICAL RECORD: [id number] SEX: M LOCATION:[facility] ORDER #: ADMISSION DATE: 12/16/20 AGE OF PATIENT: 79 REFERRING PHYSICIAN: INTERPRETING PHYSICIAN: GEETA OCONNELL MD DATE OF SERVICE: 12/16/2020 NUCLEAR STRESS TEST Gated: Shows decreased thickening of the inferior wall. Overall LV function is normal at 50%. SPECT imaging: SPECT imaging was performed. SPECT imaging shows a mixed defect from the inferior base extending to the inferior apex with reversibility along the inferior base, this confirmed. Horizontal axis: With a large fixed defect, but with kelin-infarct reversibility along the inferior base. Horizontal axis view shows a fixed apical defect. IMPRESSION: 1. Abnormal gated with abnormal wall motion, but preserved EF 50%. 2. Abnormal SPECT imaging with a mixed defect seen in multiple views. The severity is moderate, size is medium. FINAL RECOMMENDATION: This scan is concerning for new onset of coronary artery disease with significant kelin-infarct ischemia as well as fixed defect. We will consider diagnostic angiography if clinically indicated. TRANSINT:[id number] Voice Confirmation ID: [id number] DOCUMENT ID: [id number] GEETA OCONNELL MD CC: [id number] DICTATION DATE: 12/17/20 1210 COLLAR PADDER BLINDSTITCH: 12/18/20 0252 DEP CLI 12/16/20 [place] [id number] [place] [id number]
--- NOTE | ~2020-12-16 | EC ---
PATIENT:ALCIDES العراقي DATE OF SERVICE: 12/16/20 SEX: M MEDICAL RECORD: [id number] DATE OF : 40 [facility] AGE OF PATIENT: 79 ADMISSION DATE: 12/16/20 REFERRING PHYSICIAN: INTERPRETING PHYSICIAN: GEETA OCONNELL MD ECHOCARDIOGRAM REPORT ECHO CHARGES 4 ECHO COMPLETE Date: 12/16/20 CLINICAL DIAGNOSIS: DYSPNEA/HEART MURMUR ECHOCARDIOGRAPHIC MEASUREMENTS (adult normal given) AC root (d.<3.7cm) 3.2 cm LV Septum d (<1.2 cm> 1.0 cm Valve Excursion 1.4 cm LV Septum (systole) 1.2 cm Left Atria (s.<4.0cm> 3.7 cm LVPW d(<1.2cm) 1.1 cm RV (d.<2.3cm) 3.6 cm LVPW (sytole) 1.4 cm LV diastole(<5.6CM) 6.2 cm MV E-F(>70mm/sec) cm LV systole 4.6 cm LVOT Diameter 1.9 cm MV exc.(>10mm) 1.4 cm Est.ejection fraction (50-75%) % DOPPLER: LVIT cm/sec A 82.0 cm/sec E 54.0 cm/sec LA cm/sec RVSP 23 mmHg LVOT 99 cm/sec AOP1/2T m/s Asc. Ao 123 cm/sec RVOT 70 cm/sec RA cm/sec PA 92 cm/sec AV Gradient Peak 6.04 mmHg AV Mean 2.98 mmHg AV Area 2.5 cm MV Gradient Peak 3.98 mmHg MV Mean 1.47 mmHg MV Area cm COMMENTS: Tank Car Loader: 2 FIONA PAGE Test Director: 3 Dr. Avitia TAPE# PACS Pericardial Effusion N DATE OF SERVICE: Adequate 2D, color-flow imaging, spectral Doppler, and M-Mode. FINDINGS: No LVH. LV internal dimensions are normal. Wall motion is normal. EF is greater than or equal to 55%. Aortic valve sclerosed without evidence of stenosis by Doppler interrogation. Trivial AI with color flow imaging. Left atrium is normal at 3.7 cm. Mitral valve shows no prolapse. Mild MR. Right side is grossly normal. Mild TR. ECHOCARDIOGRAM REPORT [id number] ALCIDES العراقي TRANSINT:[id number] Voice Confirmation ID: [id number] DOCUMENT ID: [id number] GEETA OCONNELL MD CC: [id number] DICTATION DATE: 12/17/20 1317 SUPERVISING BAILIFF: 12/17/20 231 DEP CLI 12/16/20 [place] [id number] [place] [id number]
== END | disposition home or self-care (01) ==
LOC: D.HCCARDIO 08:35 → D.HCCECHO 10:30
PROVIDERS: ATTEND Internal Medicine Interventional Cardiology
DX: I20.9 Angina pectoris, unspecified (principal); R06.00 Dyspnea, unspecified

== ENCOUNTER 2021-01-05 07:00 | Day surgery (SDC) | payer MEDICARE ==
[~2021-01-05] VITALS: Ht 177.8 cm; Wt 60.5 kg
--- NOTE | ~2021-01-05 | HEMODYNAMI ---
PATIENT:ALCIDES العراقي MEDICAL RECORD: [id number] : 40 LOCATION:DMinhCAT ADMISSION DATE: 01/05/21 Generatedon::40 Patient name: ALCIDES العراقي Patient #: [id number] : 1940 Date of study: 01/05/2021 Page: Of Hemodynamic Procedure Report Patient Data Patient Demographics Procedure consent was obtained First Name: ALCIDES Gender: Male Last Name: DULCE MARIA : 1940 Middle Initial: M Age: 80 year(s) Patient #: [id number] Race: SSN: [id number] Additional ID: [id number] Contact details Address: [address] [place] [address] State: [place] City: [place] Zip code: [address] Past Medical History Performed procedures and imaging results Date Procedure Procedure Results Comments 12/16/2020 Stress testing Positive->Intermediate with SPECT MPI risk Allergies Allergen Reaction Date Comments Reported Other allergy 02/05/2019 Admission Admission Data Admission Date: 01/05/2021 Admission Time: 7:00 Arrival Date: 01/05/2021 Arrival Time: 8:30 Admit Source: Other Insurance Payor: Private health insurance [facility] #: [id number] Height (in.): 70 BSA: 1.76 (m2) Height (cm.): 177.8 BMI: 19.15 (kg/m2) Weight (lbs.): 133.47 Weight (kg.): 60.54 Lab Results Lab Result Date: 01/05/2021 Lab Result Time: 0:00 Biochemistry Name Units Result Min Max BUN mg/dl 30 --(----)-* 7 18 Creatinine mg/dl 1.3 --(---*)-- 0.6 1.3 eGFR ml/min 56 *-(----)-- 90 120 NONAFRICAN CBC Name Units Result Min Max Hematocrit % 41.8 -*(----)-- 42 54 Hemoglobin g/dl 14.1 --(*---)-- 13.5 17.5 Procedure Procedure Types Cath Procedure Diagnostic Procedure [facility] w/Coronaries FFR/IVUS FFR Initial Sedation Charges Moderate Sedation 40-54 minutes PCI Procedure Coronary Stent Coronary Stent Initial Hemochron ACT Test Procedure Description Procedure Date Procedure Date: 01/05/2021 Procedure Start Time: 8:47 Procedure End Time: 9:32 Procedure Staff Name Function Regan Bravo MD Performing Physician Francois Ricks RN Nurse Elvia Gunter RT Scrub Karlene Kirby RT Monitor Procedure Data Cath Procedure Fluoroscopy Diagnostic fluoroscopy Total fluoroscopy Time: 7.5 time: 7.5 min min Diagnostic fluoroscopy Total fluoroscopy dose: 830 dose: 830 mGy mGy Contrast Material Contrast Material Type Amount (ml) Isovue 370 132 Entry Location Entry Primary Successful Side Size Upsize Upsize Entry Closure Succes sful Closure Location (Fr) 1 (Fr) 2 (Fr) Remarks Device Remarks Femoral Right 5 Fr 6 Fr 6 Fr artery Long Short Estimated blood loss: 10 ml Diagnostic catheters Device Type Used For End Catheter Placement MULTIPACK JL 4.0 5Fr Procedure catheter DIAGNOSTIC JL 5 5Fr Procedure catheter ([id number]) MULTIPACK 3DRC 5Fr Procedure catheter MULTIPACK Pigtail 5 Fr Procedure catheter Procedure Complications No complications Procedure Medications Medication Administration Route Dosage Oxygen etCO2 Nasal cannula 2 l/min Lidocaine 2% added to field 20 Heparin Flush Bag added to field 2 bags (1000units/500ml NS) 0.9% NaCl I.V. 100 ml/hr Versed I.V. 1 mg Fentanyl I.V. 50 mcg Heparin Bolus I.V. 5000 units Integrilin (Bolus I.V. 5.6 ml 2mg/ml) Plavix P.O. 600 mg Hemodynamics Rest BSA: 1.76 (m2) HGB: 14.1 (g/dl) O2 Consumption: Estimated: 200.41 (ml/min) O2 Co nsumption indexed: Estimated:113.87 (ml/min/m) Heart Rate: 69 (bpm) Pressure Samples Time Site Value (mmHg) Purpose Heart Use Rate(bpm) 8:55 LV 81/6,19 Snapshot 89 8:55 AO 141/40(81) Pullback 89 8:55 LV 130/17,26 Pullback 89 Gradients Valve Time Site 1 Site 2 Mean SEP/DFP Peak To Heart Use (mmHg) (sec/min) Peak Rate (mmHg) (bpm) Aortic 8:55 LV AO 0 89 130/17,26 141/40(81) Calculations Valve P-P Mean Valve Index Valve Source Name Gradient Area Flow (cm2) Aortic 0 0 Snapshots Pre Cath Intra NCS Post Cath Vital Signs Time Heart Resp SPO2 etCO2 NIBP (mmHg) Rhythm Pain Sedation Rate (ipm) (%) (mmHg) Status Level (bpm) 8:39:40 71 24 92 30.6 145/91(111) NSR 0 (11) 10(A) , No pain 8:43:52 72 23 97 0 131/82(110) NSR 0 (11) 10(A) , No pain 8:49:34 74 19 97 8.2 125/79(109) NSR 0 (11) 9(A) , No pain 8:53:44 85 25 93 8.9 109/66(99) NSR 0 (11) 9(A) , No pain 8:57:46 90 15 92 0 125/75(99) NSR 0 (11) 9(A) , No pain 9:01:54 89 14 94 11.9 130/70(105) NSR 0 (11) 9(A) , No pain 9:06:06 90 16 92 0 126/64(106) NSR 0 (11) 9(A) , No pain 9:10:14 89 17 91 0 126/75(96) NSR 0 (11) 9(A) , No pain 9:14:21 90 18 93 0 121/72(100) NSR 0 (11) 9(A) , No pain 9:18:29 90 19 94 0 124/67(104) NSR 0 (11) 9(A) , No pain 9:22:35 84 16 96 3.7 131/78(111) NSR 0 (11) 9(A) , No pain 9:26:41 82 20 95 30.6 138/85(106) NSR 0 (11) 9(A) , No pain 9:30:51 80 18 97 11.9 139/83(119) NSR 0 (11) 10(A) , No pain 9:34:59 78 16 97 0 141/85(120) NSR 0 (11) 10(A) , No pain 9:38:58 97 19.4 No Cuff NSR 0 (11) 10(A) , No pain Medications Time Medication Route Dose Verified Delivered Reason Notes Effectiveness by by 8:36:27 Oxygen etCO2 2 Regan Parrish used for Nasal l/min St Ruperto Ricks RN procedure cannula 8:40:34 Lidocaine 2% added 20ml Regan Spears for local to vial [facility] anesthetic field MD MILLER 8:40:40 Heparin Flush added 2 Regan Spears used for Bag to bags [facility] procedure (1000units/500ml field MD MILLER NS) 8:40:49 0.9% NaCl I.V. 100 Regan Parrish Per physician ml/hr St Ruperto Ricks RN, MD 8:47:26 Versed I.V. 1 mg Regan Parrish for sedation St Ruperto Ricks RN, MD 8:47:31 Fentanyl I.V. 50 Regan Aguilarie for sedation mcg St Ruperto Ricks RN, MD 9:12:06 Heparin Bolus I.V. 5000 Regan Parrish for verifi ed units St Ruperto Ricks RN anticoagulation with dr MD vu 9:13:34 Integrilin I.V. 5.6 Regan Parrish for wasted (Bolus 2mg/ml) ml St Ruperto Ricks RN antiplatelet 4.4 ml MD therapy of vial 9:32:50 Plavix P.O. 600 [address] for mg St Ruperot Ricks RN antiplatelet therapy Procedure Log Time Note 7:56:29 Informed consent obtained and on chart 7:57:43 Arrival Date: 01/05/2021 8:30:00 AM 7:58:02 Admit Source: Other 7:58:12 Insurance Payor : Private health insurance 8:25:12 ACC Patient presents with Stable Angina CCS Anginal Class 2--Slight limitation of ordinary activity. 8:25:15 Procedure Status Elective Heart Cath (OP). 8:25:18 Elvia Gunter RT(R) sent for patient. Start room use. 8:25:19 Time tracking: Regular hours (M-F 7:00 - 5:00) 8:25:27 Plan of Care:Hemodynamics will remain stable., Cardiac rhythm will remain stable., Comfort level will be maintained., Respiratory function will remain adequate., Patient/ family verbilizes understanding of procedure., Procedure tolerated without complication., Recovers from procedure without complications.. 8:25:51 H&P Date Dictated: 12/06/2020 Within 30 days and on chart.. 8:25:51 Pre-procedure instructions explained to patient. 8:25:52 Pre-op teaching completed and patient verbalized understanding. 8:25:54 Family in waiting room. 8:25:55 Patient NPO since Midnight. 8:26:50 Lab Result : Hemoglobin 14.1 g/dl 8:26:50 Lab Result : eGFR NONAFRICAN 56 ml/min 8:26:50 Lab Result : BUN 30 mg/dl 8:26:50 Lab Result : Creatinine 1.3 mg/dl 8:26:50 Lab Result : Hematocrit 41.8 % 8:27:06 Patient Height : 70 inches 8:27:09 Patient Weight : 133.47 lbs 8:29:26 Lab results completed and on chart. 8:29:30 Right groin area was prepped with chlora-prep and draped in sterile fashion 8:29:31 Alarms reviewed by R. N. 8:29:32 Sharps counted by scrub and verified by R.N. 8:29:35 Risk of Mortality: 0.4 8:29:37 Risk of blood transfusion: 0.5 8:29:40 Risk of ZAC: 1.4 8:30:46 Stress Test: yes; abnormal INFERIOR 8:36:27 Oxygen 2 l/min etCO2 Nasal cannula was administered by Francois Ricks RN; used for procedure; Verbal order read back and verified. 8:38:24 Patient received from Pre/Post Procedure Room to CCL 1 Alert and oriented. Tansferred to table in Supine position. 8:38:26 Warm blankets applied, and diann hugger turned on for patient comfort. 8:38:26 Correct patient and procedure confirmed by team. 8:38:27 ECG and BP/O2 sat monitors applied to patient. 8:38:33 Vital chart was started 8:38:34 Full Disclosure recording started 8:38:40 Baseline sample Acquired. 8:38:45 Rhythm: sinus rhythm 8:38:55 Is the patient allergic to Iodine/contrast media? No. 8:38:57 Was the patient premedicated? Yes 8:38:59 Is patient on blood thinner?No 8:39:01 Patient diabetic? No. 8:39:02 ----Pre-sedation anethsthesia assessment.---- 8:39:04 Previous problem with sedation/anesthesia? No ? 8:39:05 Snore? Yes 8:39:07 Sleep apnea? Unknown 8:39:08 Deviated septum? No 8:39:09 Opens mouth fully? Yes 8:39:11 Sticks out tongue? Yes 8:39:13 Airway obstruction? Yes COPD 8:39:21 Dentures? Yes IN TIGHT 8:39:27 Pre procedure: right dorsailis pedis pulse 2+ Normal; easily identifiable; not easily obliterated 8:39:29 Patient pain scale 0/10 ?. 8:39:36 IV patent on arrival in left hand with 0.9% NaCl at [facility]. 8:39:42 Use device set Femoral Dx 8:39:44 ACIST Syringe (98416) opened to sterile field. 8:39:45 Bag Decanter (2002S) opened to sterile field. 8:39:45 Medline Cath Pack ([id number]) opened to sterile field. 8:39:46 ACIST Hand Control (43994) opened to sterile field. 8:39:47 ACIST Manifold (93600) opened to sterile field. 8:39:47 DIAGNOSTIC Multipack 5Fr catheter set ([id number]) opened to sterile field. 8:39:49 SHEATH 5FR Arma (CJC694) opened to sterile field. 8:39:49 EMERALD Guide Wire (804-725) opened to sterile field. 8:39:51 Tegaderm 4 x 4 (1626W) opened to sterile field. 8:40:34 Lidocaine 2% 20ml vial added to field was administered by Regan Bravo MD; for local anesthetic; Verbal order read back and verified. 8:40:40 Heparin Flush Bag (1000units/500ml NS) 2 bags added to field was administered by Regan Bravo MD; used for procedure; Verbal order read back and verified. 8:40:49 0.9% NaCl 100 ml/hr I.V. was administered by Francois Ricks RN; Per physician; Verbal order read back and verified. 8:45:07 --------ALL STOP TIME OUT------ 8:45:08 Final Timeout: patient, procedure, and site verified with staff and physician. All members of the team are in agreement. 8:45:09 Right groin site verified by team. 8:45:12 Fire Safety Assessment: A--An alcohol-based skin anteseptic being used preoperatively., C--Open oxygen or nitrous oxide is being used., D--An ESU, laser, or fiber-optic light is being used. 8:45:15 Physical assessment completed. ASA score P 2 - A patient with mild systemic disease as per Regan Bravo MD. 8:45:18 3a) 45-59 Moderately reduced kidney function. 8:45:21 Maximum allowable contrast dose (3.7 X eGFR X 0.75)155 ml. 8:45:25 Sedation plan: IV Moderate Sedation Medication:Versed, Fentanyl 8:47:26 Versed 1 mg I.V. was administered by Francois Ricks RN; for sedation; Verbal order read back and verified. 8:47:26 Procedure started. 8:47:31 Fentanyl 50 mcg I.V. was administered by Francois Ricks RN; for sedation; Verbal order read back and verified. 8:47:35 Local anesthetic to right femoral artery with Lidocaine 2% by Regan Bravo MD.INITIAL ACCESS ONLY 8:50:11 A 5 Fr sheath was inserted into the Right Femoral artery 8:50:25 A MULTIPACK JL 4.0 5Fr catheter was advanced over the wire and used for Procedure. 8:50:47 UNABLE TO ENGAGE CHANGING GUIDE CATHETER. 8:50:49 Catheter removed. 8:51:11 A DIAGNOSTIC JL 5 5Fr catheter ([id number]) was advanced over the wire and used for Procedure. 8:51:33 LCA angiography performed. 8:51:35 Injector settings: Ml/sec: 3, Volume: 6, 8:52:31 Catheter removed. 8:52:57 A MULTIPACK 3DRC 5Fr catheter was advanced over the wire and used for Procedure. 8:53:42 RCA angiography performed. 8:53:49 Injector settings: Ml/sec: 3, Volume: 6, 8:54:00 ACCDominant side:Co-Dominant 8:54:02 Catheter exchanged over wire. 8:54:[address] GLASS PCI 8:54:30 A MULTIPACK Pigtail 5 Fr catheter was advanced over the wire and used for Procedure. 8:55:27 Injector settings: Ml/sec: 5, Volume: 15, 8:55:36 LV hemodynamics recorded. 8:55:38 LV gram done using MCCLELLAN 8:55:44 EF : 30 % 8:56:24 SHEATH 6FR Destination (RSR01) opened to sterile field. 8:56:49 Catheter removed. 8:56:50 Proceeding to intervention. 8:57:30 INFLATOR Merit BasixCompak (ZK5805) opened to sterile field. 8:57:35 Alcolu OmniWire (11532) opened to sterile field. 9:01:24 UNABLE TO GET DESTINATION IN FEMORAL ARTERY CHANGING SHEATHS. 9:01:28 SHEATH 6FR ARROW 45cm (CL-04121) opened to sterile field. 9:06:31 J WIRE INSERTED FOR SHEATH INSERTION. 9:06:50 DILATOR OVER J WIRE. 9:07:32 AMPLATZ Super Stiff 75cm wire ([id number]) opened to sterile field. 9:08:15 AMPLATZ EXCAHNGED FOR J WIRE. 9:10:14 Sheath upsized to a 6 Fr Long. 9:10:18 GUIDE 6FR AR 1.0 SH catheter ([id number]) opened to sterile field. 9:10:26 6 Fr AR 1 SH guide catheter was inserted over the wire 9:11:35 Pressure wire advanced. 9:12:06 Heparin Bolus 5000 units I.V. was administered by Francois Ricks RN; for anticoagulation; verified with dr vu Verbal order read back and verified. 9:13:34 Integrilin (Bolus 2mg/ml) 5.6 ml I.V. was administered by Francois Ricks RN; for antiplatelet therapy; wasted 4.4 ml of vial Verbal order read back and verified. 9:13:44 Wire advanced across lesion. 9:15:37 RCA lesion measured at .84 with IFR 9:17:17 Inflate balloon Inflation number: 1 A Mozec Rx 3.0 x 14 balloon was prepped and advanced across the Mid RCA , then inflated to 14 DARSHAN for 0:24 (min:sec) . 9:17:41 Inflation number: 1 The Mozec Rx 3.0 x 14 balloon was reinflated across the Prox RCA , to 14 DARSHAN for 0:10 (min:sec) . 9:18:07 Inflation number: 2 The Mozec Rx 3.0 x 14 balloon was reinflated across the Prox RCA , to 14 DARSHAN for 0:10 (min:sec) . 9:18:46 Balloon removed over the wire. 9:20:58 Place stent Inflation Number: 1 A TRACIE RX 3.5 x 38 stent ([id number]) was prepped and advanced across the Undefined1 . The stent was deployed at 14 DARSHAN for 0:20 (min:sec) . 9:21:47 Stent catheter was removed intact over wire. 9:24:16 Place stent Inflation Number: 3 A TRACIE RX 3.5 x 15 stent ([id number]) was prepped and advanced across the Prox RCA . The stent was deployed at 14 DARSHAN for 0:23 (min:sec) . 9:25:18 RCA lesion measured at .90 with IFR 9:26:43 Wire removed. 9:26:44 Guide catheter removed. 9:26:48 SHEATH 6FR Arma (MUL834) opened to sterile field. 9:26:56 Sheath upsized to a 6 Fr Short. 9:27:00 EXOSEAL 6Fr (EX600) opened to sterile field. 9:27:12 Fluoroscopy time 07.50 minutes. 9:27:15 Fluoroscopy dose: 830 mGy 9:27:15 Flurop Dose total: 830 9:27:21 Dose Area Product 42431 mGy/cm. 9:27:26 Contrast amount:Isovue 370 132ml. 9:27:29 Maximum allowable dose exceeded? No. 9:27:30 Sharps counted by scrub and verified by R.N. 9:27:44 Procedure ended.(Physican Out) 9:28:15 Post-op/insertion site Right Femoral artery dressed using a 4 x 4 and Tegaderm. 9:28:20 Post right femoral artery:stable, soft, clean and dry 9:28:46 Femstop placed over the right femoral artery at 158 mmHg. Hemostasis achieved. 9:28:49 Post Procedure Pulses reassessed and unchanged 9:28:51 Post procedure: right dorsailis pedis pulse 1+ Palpable, but thready & weak; easily obliterated. 9:28:54 Post-procedure physical assessment completed. ASA score P 2 - A patient with mild systemic disease as per Regan Bravo MD. 9::58 Post procedure rhythm: sinus rhythm 9:29:01 Estimated blood loss: 10 ml 9:29:02 Post procedure instruction explained to patient.Patient verbalizes understanding. 9:29:03 Patient needs reinforcement of post procedure teaching. 9:29:54 Procedure type changed to Cath procedure, Diagnostic procedure, LHC, [facility] w/Coronaries, FFR/IVUS, FFR Initial, Sedation Charges, Moderate Sedation 40-54 minutes, PCI procedure, Coronary Stent, Coronary Stent Initial, Hemochron ACT Test 9:31:55 Procedure and supply charges have been captured, reviewed, submitted and are correct. 9::58 Procedure Complication : No complications 9:32:02 [facility] Findings: MVD- PCI performed (see procedure note) 9:32:03 Operative report dictated upon procedure completion. 9:32:03 See physician's report for complete and final results. 9:32:05 Report given to Pre/Post Procedure Room. 9:32:08 Patient transfered to Pre/Post Procedure Room with Stretcher. 9:32:10 Procedure ended. 9:32:10 Full Disclosure recording stopped 9:32:19 ACT drawn and resulted at 228 seconds. (normal therapeutic range 180-240 seconds). 9:32:19 ACC-PCI Only Patient was given prescriptions, or instructed by Regan Bravo MD to start/continue the following medications upon discharge: Plavix 9:32:20 End room use (Document Last) 9:32:29 End room use (Document Last) 9:32:50 Plavix 600 mg P.O. was administered by Francois Ricks RN; for antiplatelet therapy; Verbal order read back and verified. 9:34:43 End room use (Document Last) 9:40:42 Vital chart was stopped Intervention Summary Intervention Notes Time ActionType Lesion and Equipment Used Action# Pressure Duration Attributes 9:17:17 Inflate Mid RCA Mozec Rx 3.0 x 1 14 00:24 balloon 14 balloon 9:17:41 Reinflate Prox RCA Mozec Rx 3.0 x 1 14 00:10 balloon 14 balloon 9:18:07 Reinflate Prox RCA Mozec Rx 3.0 x 2 14 00:10 balloon 14 balloon 9:20:58 Place stent Undefined1 TRACIE RX 3.5 x 1 14 00:20 38 stent ([id number]) 9:24:16 Place stent Prox RCA TRACIE RX 3.5 x 3 14 00:23 15 stent ([id number]) Device Usage Item Name Manufacture Quantity Catalog Hospital Part Current Minimal Lot# / Number Charge Number Stock Stock Serial# Code ACIST Syringe Acist 1 47739 096437 322647 584788 20 (97203) Medical Systems Inc Bag Decanter Microtek 1 244988 99890 266221 5 () Medical Inc. Medline Cath Medline 1 [id number] 729396 28728 874532 5 Pack ([id number]) ACIST Hand Acist 1 63298 170731 663272 635687 5 Control Medical (77068) Systems Inc ACIST Manifold Acist 1 68621 067395 318643 446886 5 (27519) Medical Systems [employer] DIAGNOSTIC Cardinal 1 KC2143 779657 52240 722155 30 Multipack 5Fr Health catheter set ([id number]) SHEATH 5FR Terumo 1 NFR970 525837 766537 610932 5 Arma (SNU377) EMERALD Guide Cardinal 1 502-455 439966 211014 141896 5 Wire (502-455) Linio Tegaderm 4 x 4 3M 1 1626W 887246 398833 781274 5 (1626W) MULTIPACK JL Cardinal 1 613878 5 4.0 5Fr Health catheter DIAGNOSTIC JL Cardinal 1 [id number] 792939 984540 299836 5 5 5Fr catheter Health (496331T) MULTIPACK 3DRC Cardinal 1 321955 5 5Fr catheter Health MULTIPACK Cardinal 1 215356 5 Pigtail 5 Fr Health catheter SHEATH 6FR Terumo 1 RSR01 232706 95267 994875 5 Destination (RSR01) INFLATOR Merit Merit 1 WK0015 916585 856845 347670 15 TraymtBioTalk Technologies ([id number]) Alcolu Alcolu 1 4070695 948052 48466 9923 5 OmniWire (43348) SHEATH 6FR Teleflex 1 CL-20813 187537 087992 523259 5 ARROW 45cm (CL-68389) AMPLATZ Super [place] 1 [id number] 587946 440829 969953 5 Stiff 75cm Scientific wire ([id number]) GUIDE 6FR AR Medtronic 1 [id number] 556837 00430 185971 1 1.0 SH catheter ([id number]) Mozec Rx 3.0 x Cardinal 1 [id number] 070077 416778248 521424 5 UMOF53 14 balloon Health TRACIE RX 3.5 x Medtronic 1 [id number] 967479 3645371 643041 5 [id number] 38 stent ([id number]) TRACIE RX 3.5 x Medtronic 1 [id number] 091890 3236813 467249 5 [id number] 15 stent ([id number]) SHEATH 6FR Terumo 1 ZUB665 374542 110269 087394 40 Arma ([id number]) EXOSEAL 6Fr Cardinal 1 EX600 795756 859689 351537 10 (EX600) Health Signature Audit Noble Stage Time Signature Unsigned Intra-Procedure 01/05/2021 Karlene Kirby 9:32:29 AM RT(R) Intra-Procedure 01/05/2021 Francois Ricks RN 9:34:43 AM Intra-Procedure 01/05/2021 Regan Paniagua 9:40:40 AM Ruperto MILLER Signatures Performing Physician : Signature : Regan Bravo MD Date : Time : Nurse : Francois Ricks RN Signature : Date : Time : Monitor : Karlene Kirby Signature : RT Date : Time : [facility] [address] [place] [address]
[2021-01-05] MEDS ORDERED: LIPITOR10 MG PO (07:37)
[2021-01-05] MEDS ORDERED: MULTI-DAY VITAM1 TAB PO (07:37)
[2021-01-05] MEDS ORDERED: TESSALON PERLE100 MG PO (07:38)
[2021-01-05 07:43] VITALS: BP 139/64; Ht 177.8 cm; Wt 60.5 kg
[2021-01-05 08:03] LABS: BASOPHILS 1.2 % (0-2); EOSINOPHILS 2.5 % (0-7); HEMATOCRIT 41.8 % (42.0-54.0); HEMOGLOBIN 14.1 g/dL (13.5-17.5); LYMPHOCYTES 13.7 % (15-50); MCHC 33.7 g/dL (31.0-37.0); MCV 91.9 fL (80.0-100.0); MEAN PLATELET VOLUME 9.1 fL (7.4-10.4); MONOCYTES 8.1 % (2-11); NEUTROPHILS 74.5 % (40-80); RBC 4.54 10x6/uL (4.20-6.10); RDW 14.8 % (11.5-14.5); WBC 9.1 10x3/uL (4.8-10.8)
[2021-01-05 08:04] LABS: PLATELET COUNT 222 10x3/uL (130-400)
[2021-01-05 08:10] LABS: ALBUMIN 3.6 g/dL (3.4-5.0); BILIRUBIN - TOTAL 0.32 mg/dL (0.2-1.3); CARBON DIOXIDE 26.3 mmol/L (21.0-32.0); CHOL - HDL RATIO 3.4 ratio (2.3-4.9); CREATININE - SERUM 1.3 mg/dL (0.6-1.3); POTASSIUM - SERUM 4.3 mmol/L (3.5-5.1); PROTEIN - SERUM 7.6 g/dL (6.4-8.2)
--- NOTE | 2021-01-05 09:45 | NUR ---
PT REC'D TO CATH RECOVERY ROOM 10 VIA STRETCHER. [facility] FEM STOP IN PL[facility] - SEE ADMISSION FLOWSHEETS. ALAMRS ON AND C/L IN REACH.
--- NOTE | 2021-01-05 10:00 | NUR ---
R GROIN SITE C/D/I, NO S/S BLEEDING OR HEMATOMA. FEM STOP UNCHANGED. R LEG/FOOT WARM WITH PALP PULSES AND BRISK CAP REFILL. VSS. NO S/S DISTRESS. PT RESTS FOR SHORT PERIODS, CHRONIC COUGH NOTED. ALARMS ON AND C/L IN REACH.
[2021-01-05] MEDS ORDERED: PLAVIX75 MG PO (10:30)
--- NOTE | 2021-01-05 10:30 | NUR ---
PT RESTING QUIETLY, VSS. R GROIN SITE C/D/I, FEM STOP IN PLACE, NO S/S BLEEDING OR HEMATOMA. PULSES PALP, BRISK CAP REFILL NOTED. ALARMS ON AND C/L IN REACH.
[2021-01-05] MEDS ORDERED: BAYER CHEWABLE81 MG PO (10:31)
[2021-01-05] MEDS ORDERED: ALDACTONE25 MG PO (10:31)
--- NOTE | 2021-01-05 10:45 | NUR ---
R GROIN SITE C/D/I, FEM STOP IN PLACE. NO S/S BLEEDING OR HEMATOMA. R LEG/FOOT WARM WITH PALP PULSES AND BRISK CAP REFILL. VSS. PT DENIES PAIN OR NEEDS. TOLERATING SIPS OF WATER. C/L IN REACH.
--- NOTE | 2021-01-05 11:00 | NUR ---
NEW PRESCRIPTIONS (PLAVIX AND ALDACTONE) CALLED IN TO [facility] [place] PER PT REQUEST. VSS. R GROIN SITE C/D/I. BEGIN WEANING FEM STOP PER HOSPITAL PROTICAL. CURRENTLY AT 100MMHG, NO S/S BLEEDING OR HEMATOMA. PULSES PALP. ALARMS ON AND C/L IN REACH.
--- NOTE | 2021-01-05 11:15 | NUR ---
FEM STOP WEANED TO 75MMHG, NO S/S BLEEDING OR HEMATOMA. R LEG/FOOT WARM WITH PALP PULSES AND BRISK CAP REFILL. VSS. WILL CONT CLOSE MONITORING. ALARMS ON AND C/L IN REACH.
--- NOTE | 2021-01-05 11:30 | NUR ---
FEMSTOP WEANED TO 50MMHG, NO S/S BLEEDNG OR HEMATOMA. PULSES PALP. VSS. ALARMS ON AND C/L IN REACH. AT BS.
--- NOTE | 2021-01-05 11:50 | NUR ---
ALL AIR WEANED FROM FEMSTOP, REMAINS IN PLACE, NO S/S BLEEDING OR HEMATOMA. PULSES PALP.. WILL CONT CLOSE MONITORING. C/L IN REACH.
--- NOTE | 2021-01-05 12:05 | NUR ---
FEMSTOP OFF, BRUISING NOTED, SMALL NICKEL SIZE FIRM AREA NOTED, OTHERWISE SOFT. 2X2S AND TEGADERM DSG APPLIED. R LEG/FOOT WARM WITH PALP PULSES AND BRISK CAP REFILL NOTED. VSS. PT REPORTS SITE TENDER, "BUT NOT TOO BAD". ALARMS ON AND C/L IN REACH.
--- NOTE | 2021-01-05 12:26 | NUR ---
R GROIN SITE SOFT, NO CHANGE IN ELDON SIZE FIRM AREA. PULSES PALP. PT REPOSITIONED UP IN BED. HOB GRADUALLY ELEVATED. SANDWICH TRAY AND COFFEE PROVIDED. ASSISTING PT. ALARMS ON AND C/L IN REACH.
--- NOTE | 2021-01-05 13:00 | NUR ---
R GROIN SITE SOFT, NO S/S BLEEDING, NO CHANGE IN SMALL AREA OF BRUISING AND ELDON SIZE FIRMNESS. PULSES PALP. PIV D/C'D INTACT, DSG APPLIED. PT ALLOWED UP TO GET DRESSED, ASSISTING PT.
--- NOTE | 2021-01-05 13:16 | NUR ---
ALL DISCHARGE INSTRUCTIONS REVIEWED WITH PT AND HIS , INCLUDING RESTRICTIONS, MEDS (NEW PRESCRIPTIONS), AND F/U APPT. BOTH VERBALIZE UNDERSTANDING.
--- NOTE | 2021-01-05 13:20 | NUR ---
PT TO BR INDEPENDENTLY, REPORTS VOIDING NORMALLY. DENIES PAIN. R GROIN SITE UNCHANGED, DSG C/D/I.
--- NOTE | 2021-01-05 13:23 | NUR ---
PT D/C'D VIA WC TO PRIVATE VEHICLE WITH ALL PAPERWORK AND BELONGINGS.
--- NOTE | 2021-01-05 14:28 | OP ---
PATIENT NAME: ALCIDES العراقي MEDICAL RECORD: [id number] :40 LOCATION:D.CAT ADMISSION DATE: SURGEON: GEETA OCONNELL MD DATE OF OPERATION: 01/05/2021 PROCEDURE PERFORMED: Left heart catheterization, selective coronary angiography, right femoral artery approach, IFR wire to the right, pre and post. CATHETERS: A 5-Wolof sheath, 5/4 left and right Lan, 5/4 pig. The procedure was well tolerated. The patient was returned to the west. Sheath removed. Adequate hemostasis was obtained as well as ExoSeal device. FINDINGS: Left ventriculography in 30-degree MCCLELLAN view shows global hypokinesis, reduced EF, estimated EF 30% to 35%. CORONARY ANATOMY: Left main: Left main free of disease. LAD: Free of disease in diagonal system. Circumflex: Free of disease in the marginal system. Right coronary artery: Shows severe diffuse 80% stenosis. IMPRESSION: This is correlating nicely with nuclear and IFR wire of less than 0.9. We predeployed with a 3.0 x 15 mm Marion balloon up and down the 80% stenosis. Stents deployed were 3.5 x 30 and 3.5 x 15, both drug-eluting stents up to 14 atmospheres. Final angiography showed excellent resolution of 80% stenosis and no significant residual. The IFR wire improved posterior as well. At this point in time, Plavix loaded in the lab. Sheath closed with ExoSeal device as well as we will start myopathic medications. TRANSINT:[id number] Voice Confirmation ID: [id number] DOCUMENT ID: [id number] GEETA OCONNELL MD at 1428 CC: [id number] DICTATION DATE: 01/05/21 0932 JEWELLERY DESIGNER: 01/05/[address] [facility] 01/05/21 [facility] [address] [id number]
== END 2021-01-05 13:23 | disposition home or self-care (01) ==
LOC: D.CATH 07:00
PROVIDERS: ATTEND Internal Medicine Interventional Cardiology
DX: I20.9 Angina pectoris, unspecified (principal); R94.39 Abnormal result of other cardiovascular function study; R06.00 Dyspnea, unspecified; I10 Essential (primary) hypertension; J44.9 Chronic obstructive pulmonary disease, unspecified; R01.1 Cardiac murmur, unspecified
CPT/HCPCS: 93458; 93571; C9600